=== PATIENT | male | born 1955 | race Caucasian/White ===

== ENCOUNTER 2017-08-13 11:32 | Emergency (ER) | END 2017-08-13 14:06 | disposition home or self-care (01) ==

== ENCOUNTER 2017-08-21 17:12 | Observation (INO) | END 2017-08-23 15:31 | disposition home or self-care (01) ==

== ENCOUNTER 2017-08-28 18:36 | Emergency (ER) | END 2017-08-28 21:43 | disposition left against medical advice (07) ==